=== PATIENT | female | born 1985 | race Caucasian/White ===

== ENCOUNTER 2017-09-27 13:26 | Emergency (ER) | payer SELFPAY ==
[2017-09-27 13:47] VITALS: BP 116/73; PULSE 70; TEMP 98.6; BMI 34.0
--- NOTE | 2017-09-27 15:10 | PDOC ---
History of Present Illness - General Stated Complaint: NUMBNESS IN FINGERS/TOES & JAW Time Seen by Provider: 09/27/17 14:46 History Source: Patient Exam Limitations: No Limitations - History of Present Illness Initial Comments: 09/27/17 15:04 Patient is a [2-year-old female, history of depression on Zoloft patient of . Patient presents with 3 day history of intermittent numbness or tingling to hands and feet. Patient reports one week ago started to take " weight loss medication" Garcinia." She denies any chest pain or shortness of breath, no tachycardia, no headache currently but with intermittent chronic headaches. No cough or cold-like symptoms. No nausea vomiting or diarrhea. No urinary symptoms.] Past Medical History: [Denies]. Allergies: Shellfish Medications: [Zoloft] Family History: Non-contributory Social History: Denies smoking, alcohol use, or IVDU Vital signs on arrival are [notable for pulse of 70.] Review of Systems GENERAL/CONSTITUTIONAL: [No fever or chills. No weakness. No weight change.] HEAD, EYES, EARS, NOSE AND THROAT: [No change in vision. No ear pain or discharge. No sore throat. ] CARDIOVASCULAR: [No chest pain or shortness of breath.] RESPIRATORY: [No cough, wheezing, or hemoptysis.] GASTROINTESTINAL: [No nausea, vomiting, diarrhea or constipation. No rectal bleeding.] GENITOURINARY: [No dysuria, frequency, or change in urination.] MUSCULOSKELETAL: [No joint or muscle swelling or pain. No neck or back pain.] SKIN AND BREASTS: [No rash or easy bruising.] NEUROLOGIC: [No headache, vertigo, loss of consciousness, or loss of sensation. Intermittent numbness and tingling to bilateral upper and lower extremities] PSYCHIATRIC: [No depression or anxiety.] ENDOCRINE: [No increased thirst. No abnormal weight change.] HEMATOLOGIC/LYMPHATIC: [No anemia, easy bleeding, or history of blood clots.] ALLERGIC/IMMUNOLOGIC: [No hives or skin allergy. No latex allergy.] Physical Exam: GENERAL: [The patient is awake, alert, and fully oriented, in no acute distress. ] HEAD: [Normal with no signs of trauma.] EYES: [Pupils equal, round and reactive to light, extraocular movements intact, sclera anicteric, conjunctiva clear.] ENT: [Ears normal, nares patent, oropharynx clear without exudates. Moist mucous membranes. No uvula deviation] NECK: [Normal range of motion, supple without lymphadenopathy, JVD, or masses.] LUNGS: [Breath sounds equal, clear to auscultation bilaterally. No wheezes, and no crackles.] HEART: [Regular rate and rhythm, normal S1 and S2 without murmur, rub or gallop. ] ABDOMEN: [Soft, nontender, normoactive bowel sounds. No guarding, no rebound. No masses. No bruising or abrasions] RECTAL : [Guaiac negative, normal rectal tone.] MUSCULOSKELETAL: [Normal range of motion, no edema. No clubbing or cyanosis. No cords, erythema, or tenderness. No CVA Tenderness with fist.] NEUROLOGICAL: [Cranial nerves II through XII grossly intact. Normal speech, normal gait.] PSYCH: [Normal mood, normal affect.] SKIN: [Warm, Dry, normal turgor, no rashes or lesions noted.] 09/27/17 15:06 Past History - Past Medical History Allergies/Adverse Reactions: Allergies Allergy/AdvReac Type Severity Reaction Status Date / Time shellfish derived Allergy Severe Verified 09/27/17 13:42 seafood Allergy Uncoded 09/27/17 13:42 Home Medications: Ambulatory Orders NK [No Known Home Medication] 01/01/16 Asthma: No Cancer: No Cardiac Disorders: No CVA: No COPD: No DVT: No Diabetes: No HTN: No Seizures: No Thyroid Disease: No Other medical history: GESTATIONAL DM - Surgical History Cholecystectomy: Yes - Immunization History Immunization Up to Date: No - Suicide/Smoking/Psychosocial Hx Smoking Status: No Smoking History: Current some day smoker Have you smoked in the past 12 months: Yes Number of Cigarettes Smoked Daily: 3 Information on smoking cessation initiated: No 'Breaking Loose' booklet given: 10/06/16 Hx Alcohol Use: No Drug/Substance Use Hx: No Substance Use Type: None Hx Substance Use Treatment: No *Physical Exam - Vital Signs Last Vital Signs Temp Pulse Resp BP Pulse Ox 98.6 F 70 15 116/73 100 09/27/17 13:43 09/27/17 13:43 09/27/17 13:43 09/27/17 13:43 09/27/17 13:43 Medical Decision Making - Medical Decision Making 09/27/17 15:06 A/P: Patient here for evaluation of intermittent numbness or tingling to bilateral upper and lower extremities. Patient with no neurological deficits. I have called patient's primary care doctor Dr. Martha Bedolla. Based on patient's clinical presentation coincides to when patient started taking the weight loss medication. M.D. states they can cause hyperparesthesia. Patient with no neurological deficits. Dr. Bedolla will follow-up with patient at 10:15 on Wednesday. If any increased symptoms, chest pain or shortness of breath or any other concerns they will return to ER. *DC/Admit/Observation/Transfer Diagnosis at time of Disposition: Distal paresthesia - Discharge Dispostion Disposition: HOME Condition at time of disposition: Good Admit: No - Referrals Referrals: Lonnie Bedolla MD [Staff Physician] - (10:15 on wednesday) - Patient Instructions Additional Instructions: If any chest pain, shortness of breath, increased numbness or tingling, pain, shortness of breath, increased numbness or tingling, or any other concerns return immediately to ER otherwise follow-up in the office of on Wednesday at 10:15 AM. - Post Discharge Activity
== END 2017-09-27 15:17 | disposition home or self-care (01) ==
LOC: JERFT 13:26
DX: R20.2 Paresthesia of skin (principal)
CPT/HCPCS: 99281-25

== ENCOUNTER 2018-09-26 16:50 | Emergency (ER) | payer OTHER ==
[2018-09-26 17:09] VITALS: BP 145/81; PULSE 82; TEMP 98.8; BMI 34.3
[2018-09-26] MEDS ORDERED: ALBUTEROL SO4 2.5/IPRATROPIUM 0.5 INH SOL 3 ML VIAL.NEB. NEB ONE ×2 (17:10→17:12)
--- NOTE | 2018-09-26 17:12 | PDOC ---
Rapid Medical Evaluation Chief Complaint: Chest Pain Medical Evaluation: Allergies Allergy/AdvReac Type Severity Reaction Status Date / Time shellfish derived Allergy Severe Verified 09/27/17 13:42 seafood Allergy Uncoded 09/27/17 13:42 Vital Signs Temp Pulse Resp BP Pulse Ox 98.8 F 82 17 145/81 99 09/26/18 17:06 09/26/18 17:06 09/26/18 17:06 09/26/18 17:06 09/26/18 17:06 09/26/18 17:11 I have performed a brief in-person evaluation of this patient. The patient presents with a chief complaint of:cough/ cP across back Pertinent physical exam findings: Tight Breath sounds but no cough noted. No tachypnea. I have ordered the following: Andie The patient will proceed to the ED for further evaluation. Discharge Disposition - Referrals Referrals: Christie Bedolla MD [Primary Care Provider] - - Patient Instructions - Post Discharge Activity
[2018-09-26] MEDS ORDERED: KETOROLAC TROMETHAMINE 60 MG/2 ML VIAL IM ONE (18:15)
[2018-09-26] MEDS ORDERED: KETOROLAC TROMETHAMINE 60 MG/2 ML VIAL ONE (18:21)
--- NOTE | 2018-09-26 18:32 | PDOC ---
History of Present Illness - General Chief Complaint: Chest Pain Stated Complaint: CHEST PAIN Time Seen by Provider: 09/26/18 17:56 - History of Present Illness Initial Comments: 09/26/18 18:27 33-year-old female without comorbidities presents for evaluation of 2 days of chest pain. She states over the last 2 months she's had a severe cough she was treated for bronchitis her pain is described as achy without radiation of symptoms. She has no comorbidities no recent surgeries or coagulopathies Past History - Past Medical History Allergies/Adverse Reactions: Allergies Allergy/AdvReac Type Severity Reaction Status Date / Time shellfish derived Allergy Severe Verified 09/27/17 13:42 seafood Allergy Uncoded 09/27/17 13:42 Home Medications: Ambulatory Orders NK [No Known Home Medication] 01/01/16 Asthma: No Cancer: No Cardiac Disorders: No CVA: No COPD: No DVT: No Diabetes: No HTN: No Seizures: No Thyroid Disease: No Other medical history: pre-elcampisa - Surgical History Cholecystectomy: Yes - Immunization History Immunization Up to Date: No - Suicide/Smoking/Psychosocial Hx Smoking Status: No Smoking History: Former smoker Have you smoked in the past 12 months: No Number of Cigarettes Smoked Daily: 3 Information on smoking cessation initiated: No 'Breaking Loose' booklet given: 10/06/16 Hx Alcohol Use: No Drug/Substance Use Hx: No Substance Use Type: None Hx Substance Use Treatment: No Review of Systems - Review of Systems Cardiac (ROS): Yes: Chest Pain *Physical Exam - Vital Signs Last Vital Signs Temp Pulse Resp BP Pulse Ox 98.8 F 82 17 145/81 99 09/26/18 17:06 09/26/18 17:06 09/26/18 17:06 09/26/18 17:06 09/26/18 17:06 - Physical Exam Comments: 09/26/18 18:29 HEAD: NC/AT EYES: Conjuntiva clear Ears: Canals and TM's normal NOSE: No d/c THROAT: Moist mucous membrances, oral pharanx clear, uvula midline NECK: Supple without adenopathy CARDIAC: S1 S2; there is no reproducable tenderness LUNGS: CTA Full and Equal breath sounds ABDOMEN: Soft NT ND MS: Full ROM in all joints without edema NEUROLOGIC: No gross sensory or motor deficits, NVID SKIN: Normal color and temperature no lesions or rashes Moderate Sedation - Procedure Monitoring Vital Signs: Procedure Monitoring Vital Signs Temperature 98.8 F 09/26/18 17:06 Pulse Rate 82 09/26/18 17:06 Respiratory Rate 17 09/26/18 17:06 Blood Pressure 145/81 09/26/18 17:06 O2 Sat by Pulse Oximetry (%) 99 09/26/18 17:06 ED Treatment Course - Medications Given in the ED: ED Medications Discontinued Medications Generic Name Dose Route Start Last Admin Trade Name Ronnell PRN Reason Stop Dose Admin Albuterol/Ipratropium 1 amp 09/26/18 17:10 09/26/18 17:17 Duoneb - NEB 09/26/18 17:11 1 amp ONCE ONE Administration Ketorolac Tromethamine 60 mg 09/26/18 18:15 09/26/18 18:26 Toradol Injection - IM 09/26/18 18:16 60 mg ONCE ONE Administration *DC/Admit/Observation/Transfer Diagnosis at time of Disposition: Chest wall discomfort - Discharge Dispostion Disposition: HOME Condition at time of disposition: Improved Decision to Admit order: No - Referrals Referrals: Christie Bedolla MD [Primary Care Provider] - - Patient Instructions Printed Discharge Instructions: DI for Chest Pain, DI for Atypical Chest Pain Additional Instructions: Leese take Tylenol and Motrin as directed for pain. Return to the emergency room should symptoms worsen or go unresolved. Follow-up with your primary care provider in one to 2 days for further evaluation and treatment options. - Post Discharge Activity
--- NOTE | 2018-09-27 18:14 | EKG ---
Test Reason : Blood Pressure : / mmHG Vent. Rate : 080 BPM Atrial Rate : 080 BPM P-R Int : 184 ms QRS Dur : 080 ms QT Int : 358 ms P-R-T Axes : 046 035 041 degrees QTc Int : 412 ms NORMAL SINUS RHYTHM NORMAL ECG Confirmed by MD NABIL, ROB ([id number]) on 09/27/2018 6:14:27 PM Referred By: Confirmed By:ROB FERRER MD
== END 2018-09-26 18:36 | disposition home or self-care (01) ==
LOC: JERFT 16:50
PROC: 3E0F7GC Introduction of Other Therapeutic Substance into Respiratory Tract, Via Natural or Artificial Opening (ICD-10-PCS; principal; 2018-09-26)
PROC: 3E0233Z Introduction of Anti-inflammatory into Muscle, Percutaneous Approach (ICD-10-PCS; 2018-09-26)
DX: R07.9 Chest pain, unspecified (principal); Z87.891 Personal history of nicotine dependence
CPT/HCPCS: 93005; 93010; 94640; 96372; 99281-25

== ENCOUNTER 2019-05-09 20:46 | Emergency (ER) | payer OTHER ==
[2019-05-09 20:53] VITALS: TEMP 98.8; BMI 37.8
--- NOTE | 2019-05-09 20:54 | PDOC ---
Rapid Medical Evaluation Time Seen by Provider: 05/09/19 20:49 Medical Evaluation: Allergies Allergy/AdvReac Type Severity Reaction Status Date / Time shellfish derived Allergy Severe Verified 05/09/19 20:50 seafood Allergy Uncoded 05/09/19 20:50 05/09/19 20:50 Pt is a 34 y/o F with depression, presents to the ER for chest pain since Wednesday. She states the pain comes and goes and is unprovoked. Nothing makes the pain better or worse. Was seen in urgent care and told to come to the ER for a chest pain work up. Pt with family history of cardiac issues Exam: RRR, S1S2 present no M/R/G Orders: Labs, EKG, urine Pt to proceed to the ED for further evaluation Discharge Disposition - Diagnosis Chest pain - Referrals - Patient Instructions - Post Discharge Activity
[2019-05-09 21:30] LABS: BASO % 0.8 % (0-2.0); EOS % 1.9 % (0-4.5); HEMATOCRIT 39.1 % (32.4-45.2); HEMOGLOBIN 12.8 GM/dL (10.7-15.3); LYMPH % 27.1 % (8-40); MCH 27.9 pg (25.7-33.7); MCHC 32.8 g/dl (32.0-36.0); MEAN CELL VOLUME 85.2 fl (80-96); MEAN PLT VOLUME 9.3 fl (7.5-11.1); NEUT % 65.2 % (42.8-82.8); PLATELET COUNT 266 K/MM3 (134-434); RDW 14.1 % (11.6-15.6); WHITE BLOOD COUNT 9.3 K/mm3 (4.0-10.0)
--- NOTE | 2019-05-09 21:33 | PDOC ---
History of Present Illness - General Chief Complaint: Chest Pain Stated Complaint: SENT BY URGENT CARE Time Seen by Provider: 05/09/19 20:49 History Source: Patient - History of Present Illness Initial Comments: 05/09/19 21:30 34 year old female with chills, pleuritic left sided chest pain x 4 days. denies cough, nasal congestion, nausea, vomiting. patient send by for evaluation. Beta Broderick Contraindications (Core Measure): Yes: Not Prescribed Past History - Past Medical History Allergies/Adverse Reactions: Allergies Allergy/AdvReac Type Severity Reaction Status Date / Time shellfish derived Allergy Severe Verified 05/09/19 20:50 seafood Allergy Uncoded 05/09/19 20:50 Home Medications: Ambulatory Orders Cetirizine HCl [Zyrtec -] 10 mg PO DAILY PRN 05/09/19 Asthma: No Cancer: No Cardiac Disorders: No CVA: No COPD: No DVT: No Diabetes: No HTN: No Psychiatric Problems: Yes Seizures: No Thyroid Disease: No - Surgical History Cholecystectomy: Yes - Immunization History Immunization Up to Date: No - Suicide/Smoking/Psychosocial Hx Smoking Status: No Smoking History: Current some day smoker Have you smoked in the past 12 months: No Number of Cigarettes Smoked Daily: 1 Information on smoking cessation initiated: No 'Breaking Loose' booklet given: 10/06/16 Hx Alcohol Use: No Drug/Substance Use Hx: No Substance Use Type: None Hx Substance Use Treatment: No Review of Systems - Review of Systems Able to Perform ROS?: Yes Is the patient limited Uzbek proficient: No Constitutional: Yes: Chills, Fever. No: Symptoms Reported, See HPI, Diaphoresis , Loss of Appetite, Malaise, Night Sweats, Weakness, Weight Stable, Unintentional Wgt. Loss, Unexplained wgt Loss, Other Cardiac (ROS): Yes: Chest Pain ABD/GI: No: Nausea, Vomiting *Physical Exam - Vital Signs Last Vital Signs Temp Pulse Resp BP Pulse Ox 98.8 F 90 22 H 126/66 99 05/09/19 20:50 05/09/19 23:54 05/09/19 23:54 05/09/19 22:25 05/09/19 23:54 - Physical Exam General Appearance: Yes: Appropriately Dressed Respiratory/Chest: positive: Lungs Clear, Normal Breath Sounds. negative: Chest Tender Cardiovascular: positive: Regular Rhythm, Regular Rate Gastrointestinal/Abdominal: positive: Normal Bowel Sounds, Soft. negative: Tender Extremity: positive: Normal Capillary Refill, Normal Inspection, Normal Range of Motion Integumentary: positive: Normal Color, Dry, Warm Neurologic: positive: Fully Oriented, Alert, Normal Mood/Affect Heart Score/ECG Review - History History: Slightly suspicious - Electrocardiogram EKG: Normal - Age Age: </= 45 - Risk Factors Based on the list above the patient has:: No risk factors known - Troponin Troponin: </= normal limit - Score Heart Score - Total: 0 - ECG Intrepretation Rhythm: Regular Rhythm Comment:: 05/09/19 22:06 NSR: 78 bpm ED Treatment Course - LABORATORY CBC & Chemistry Diagram: 05/09/19 21:18 05/09/19 21:18 - ADDITIONAL ORDERS Additional order review: Laboratory Results 05/09/19 05/09/19 05/09/19 22:02 21:18 21:18 D-Dimer 490 Sodium Potassium Chloride Carbon Dioxide Anion Gap BUN Creatinine Est GFR (CKD-EPI)AfAm Est GFR (CKD-EPI)NonAf Random Glucose Calcium Total Bilirubin AST ALT Alkaline Phosphatase Creatine Kinase Troponin I Total Protein Albumin Urine Color Yellow Urine Appearance Clear Urine pH 6.5 D Ur Specific [place] 1.020 Urine Protein Negative Urine Glucose (UA) Negative Urine Ketones Negative Urine Blood Negative Urine Nitrite Negative Urine Bilirubin Negative Urine Urobilinogen 1.0 Ur Leukocyte Esterase Negative Urine HCG, Qual Negative 05/09/19 21:18 D-Dimer Sodium 140 Potassium 3.8 Chloride 107 Carbon Dioxide 24 Anion Gap 9 BUN 8.1 Creatinine 0.9 Est GFR (CKD-EPI)AfAm 95.34 Est GFR (CKD-EPI)NonAf 82.26 Random Glucose 96 Calcium 9.1 Total Bilirubin 0.2 AST 19 ALT 37 Alkaline Phosphatase 92 Creatine Kinase 66 Troponin I < 0.02 Total Protein 7.0 Albumin 3.5 Urine Color Urine Appearance Urine pH Ur Specific [place] Urine Protein Urine Glucose (UA) Urine Ketones Urine Blood Urine Nitrite Urine Bilirubin Urine Urobilinogen Ur Leukocyte Esterase Urine HCG, Qual 05/09/19 21:18 RBC 4.60 MCV 85.2 MCHC 32.8 RDW 14.1 MPV 9.3 Neutrophils % 65.2 Lymphocytes % 27.1 Monocytes % 5.0 Eosinophils % 1.9 D Basophils % 0.8 - Medications Given in the ED: ED Medications Discontinued Medications Generic Name Dose Route Start Last Admin Trade Name Ronnell PRN Reason Stop Dose Admin Acetaminophen 1,000 mg 05/09/19 22:34 05/09/19 22:42 Tylenol - PO 05/09/19 22:35 1,000 mg ONCE ONE Administration Albuterol Sulfate 1 amp 05/09/19 22:51 05/09/19 23:24 Ventolin 0.083% Nebulizer Soln - NEB 05/09/19 22:52 1 amp ONCE ONE Administration Medical Decision Making - Medical Decision Making 05/09/19 22:56 A: pleuritic chest pain P; labs d-dimer xray patient to follow up with PCP and cardiology referral given. strict return precautions were given to patient. *DC/Admit/Observation/Transfer Diagnosis at time of Disposition: Chest pain Qualifiers: Chest pain type: chest pain on breathing Qualified Code(s): R07.1 - Chest pain on breathing - Discharge Dispostion Disposition: HOME Condition at time of disposition: Stable - Referrals Referrals: Brian Rojo MD [Staff Physician] - Call tomorrow Tate Bates MD [Primary Care Provider] - Call tomorrow - Patient Instructions Printed Discharge Instructions: DI for Atypical Chest Pain Additional Instructions: drink plenty of fluids you may take ibuprofen every 6 hours as needed for pain it is important that you follow up with your doctor return to the ER for any worsening symptoms - Post Discharge Activity Forms/Work/School Notes: Back to Work
[2019-05-09 21:34] LABS: PH,URINE 6.5 (5.0-8.0); URINE APPEARANCE CLEAR; URINE BILIRUBIN NEGATIVE (NEGATIVE); URINE COLOR YELLOW; URINE GLUCOSE (UA) NEGATIVE (NEGATIVE); URINE KETONE NEGATIVE (NEGATIVE); URINE LEUK ESTERASE NEGATIVE (NEGATIVE); URINE NITRITE NEGATIVE (NEGATIVE); URINE PROTEIN NEGATIVE (NEGATIVE)
[2019-05-09 21:52] LABS: ALBUMIN 3.5 g/dl (3.4-5.0); ALK PHOS 92 U/L (45-117); ANION GAP 9 MMOL/L (8-16); BILIRUBIN,TOTAL 0.2 mg/dL (0.2-1); BLOOD UREA NITROGEN 8.1 mg/dL (7-18); CALCIUM 9.1 mg/dL (8.5-10.1); CHLORIDE 107 mmol/L (98-107); CO2 24 mmol/L (21-32); CREATININE 0.9 mg/dL (0.55-1.3); GLUCOSE,RANDOM 96 mg/dL (74-106); POTASSIUM 3.8 mmol/L (3.5-5.1); SGOT/AST 19 U/L (15-37); SGPT/ALT 37 U/L (13-61); SODIUM 140 mmol/L (136-145)
[2019-05-09 22:31] VITALS: BP 126/66
[2019-05-09] MEDS ORDERED: ACETAMINOPHEN 500 MG TABLET (FP) PO ONE (22:34)
[2019-05-09] MEDS ORDERED: ACETAMINOPHEN 325 MG TABLET (FP) ONE (22:40)
[2019-05-09] MEDS ORDERED: ALBUTEROL SO4 0.083% IH SOL 2.5 MG/3 ML VIAL.NEB. NEB ONE ×2 (22:51→22:52)
[2019-05-09 23:54] VITALS: PULSE 90
--- NOTE | 2019-05-10 10:42 | EKG ---
Test Reason : Blood Pressure : / mmHG Vent. Rate : 078 BPM Atrial Rate : 078 BPM P-R Int : 198 ms QRS Dur : 084 ms QT Int : 364 ms P-R-T Axes : 039 033 031 degrees QTc Int : 414 ms POOR DATA QUALITY, INTERPRETATION MAY BE ADVERSELY AFFECTED NORMAL SINUS RHYTHM NORMAL ECG WHEN COMPARED WITH ECG OF 26-SEP-2018 16:55, NO SIGNIFICANT CHANGE WAS FOUND Confirmed by ESTELA DASH, RAUL ([id number]) on 05/10/2019 10:41:51 AM Referred By: Confirmed By:RAUL PALMER MD
== END 2019-05-09 23:55 | disposition home or self-care (01) ==
LOC: JER 20:46
PROC: 3E0F7GC Introduction of Other Therapeutic Substance into Respiratory Tract, Via Natural or Artificial Opening (ICD-10-PCS; principal; 2019-05-09)
DX: R07.89 Other chest pain (principal); F17.210 Nicotine dependence, cigarettes, uncomplicated
CPT/HCPCS: 36415; 71046-TC-FY; 80053; 81003; 82550; 84484; 84703; 85025; 85379; 93005; 93010; 94640; 99284-25

== ENCOUNTER 2020-08-22 12:25 | Emergency (ER) | payer OTHER ==
[2020-08-22 12:33] VITALS: BMI 39.3
[2020-08-22] MEDS ORDERED: ACETAMINOPHEN 325 MG TABLET (FP) PO ONE (13:09)
[2020-08-22] MEDS ORDERED: ACETAMINOPHEN 325 MG TABLET (FP) ONE (13:14)
[2020-08-22 13:52] LABS: CHLORIDE 104 mmol/L (98-107); POTASSIUM 4.8 mmol/L (3.5-5.1); SODIUM 136 mmol/L (136-145)
[2020-08-22 13:53] LABS: CALCIUM 9.6 mg/dL (8.5-10.1)
[2020-08-22 13:54] LABS: ANION GAP 9 MMOL/L (8-16); BLOOD UREA NITROGEN 8.8 mg/dL (7-18); CO2 23 mmol/L (21-32); GLUCOSE,RANDOM 80 mg/dL (74-106)
[2020-08-22 13:57] LABS: CREATININE 0.8 mg/dL (0.55-1.3); SGOT/AST 68 U/L (15-37); SGPT/ALT 71 U/L (13-61)
[2020-08-22 13:59] LABS: BILIRUBIN,TOTAL 0.8 mg/dL (0.2-1); TOT PROT 8.3 g/dl (6.4-8.2)
[2020-08-22 14:00] LABS: ALK PHOS 108 U/L (45-117)
[2020-08-22 14:14] LABS: BASO % 0.9 % (0-2.0); EOS % 2.3 % (0-4.5); HEMATOCRIT 42.4 % (32.4-45.2); HEMOGLOBIN 13.7 GM/dL (10.7-15.3); MCH 28.3 pg (25.7-33.7); MCHC 32.2 g/dl (32.0-36.0); MEAN CELL VOLUME 87.7 fl (80-96); MEAN PLT VOLUME 9.8 fl (7.5-11.1); MONO % 5.4 % (3.8-10.2); NEUT % 62.4 % (42.8-82.8); PLATELET COUNT 283 K/MM3 (134-434); RBC 4.84 M/mm3 (3.60-5.2); RDW 14.5 % (11.6-15.6); WHITE BLOOD COUNT 8.7 K/mm3 (4.0-10.0)
[2020-08-22 14:48] VITALS: BP 140/84; PULSE 70; TEMP 98.3
== END 2020-08-22 14:48 | disposition home or self-care (01) ==
LOC: JER 12:25
DX: M94.0 Chondrocostal junction syndrome [Tietze] (principal)
CPT/HCPCS: 36415; 71046-TC-FY; 80053; 82550; 82553; 84484; 84703; 85025; 93005; 93010; 99284-25